=== PATIENT | female | born 1990 | race Caucasian/White ===

== ENCOUNTER 2016-10-06 17:01 | Observation (INO) | payer SELFPAY ==
[2016-10-06 18:36] VITALS: BP 132/67; PULSE 97
== END 2016-10-06 18:25 | disposition home or self-care (01) ==
LOC: OB 17:01
PROVIDERS: ADMIT Family Medicine; ATTEND Family Medicine
DX: Z34.83 Encounter for supervision of other normal pregnancy, third trimester (principal)
CPT/HCPCS: 59025; G0378

== ENCOUNTER 2016-10-26 09:11 | Inpatient (IN) | payer SELFPAY ==
[2016-10-26] MEDS ORDERED: OMNIPEN 2 GM / NACL 100ML 100 ML IV ONE (10:15)
[2016-10-26] MEDS ORDERED: XYLOCAINE 1% HCL 20 ML MDV IJ PRN (10:15)
[2016-10-26] MEDS ORDERED: Lactated Ringers 1,000 ML IV SCH (10:30)
[2016-10-26] MEDS ORDERED: PITOCIN 30 UNITS/ LR 500 ML 500 ML IV SCH ×2 (10:30→11:30)
[2016-10-26 11:09] LABS: BASOPHIL % 0.2 % (0.0-0.4); Granulocytes % 86.7 % (36.0-66.0); Mean Cell Volume 86.8 fl (78-100); Mean Platelet Volume 11.3 fl (6-9.5); Monocytes % 5.1 % (0.0-12.0); Platelet Count 165 K/mm3 (150-450); Red Blood Count 3.95 M/mm3 (4.1-5.4); White Blood Count 9.6 K/mm3 (4.0-10.5)
[2016-10-26] MEDS ORDERED: Phenergan 25 MG INJ IV PRN (11:13)
[2016-10-26] MEDS ORDERED: Zofran 4 MG/2 ML VIAL IV PRN (11:13)
[2016-10-26] MEDS ORDERED: STADOL 2 MG IV PRN (11:13)
[2016-10-26] MEDS ORDERED: TYLENOL EXTRA STRENGTH 500 MG PO PRN ×2 (11:13→13:05)
[2016-10-26] MEDS ORDERED: Nubain 10 MG/ML IV PRN (11:13)
[2016-10-26] MEDS ORDERED: Methergine IM ONE (12:10)
[2016-10-26] MEDS ORDERED: Hemabate IM ONE (12:10)
[2016-10-26] MEDS ORDERED: Tylenol #3 Tablet ONE (12:59)
[2016-10-26] MEDS ORDERED: CORTISONE 1% CREAM TP PRN (13:05)
[2016-10-26] MEDS ORDERED: Dermoplast Spray TP PRN (13:05)
[2016-10-26] MEDS ORDERED: Restoril 15 MG PO PRN (13:05)
[2016-10-26] MEDS ORDERED: Anucort-HC SUPPOSITORY PR PRN (13:05)
[2016-10-26] MEDS ORDERED: LANSINOH 40 GM TOP PRN (13:05)
[2016-10-26] MEDS ORDERED: TUCKS TP PRN (13:05)
[2016-10-26] MEDS ORDERED: Ambien 10 MG PO PRN (13:05)
[2016-10-26] MEDS ORDERED: Tylenol #3 Tablet PO PRN (13:05)
[2016-10-26] MEDS ORDERED: Rhogam Plus 300 MCG IM ONE (15:00)
[2016-10-26] MEDS: OMNIPEN 1GM / NaCl 100ML 100 ML IV SCH (18:24)
[2016-10-26] MEDS ORDERED: Lactated Ringers 1,000 ML IV ONE (18:53)
[2016-10-26] MEDS: Colace 100 MG PO SCH (21:43)
[2016-10-26] MEDS: MOTRIN 400 MG PO PRN (21:43)
[2016-10-27 05:44] LABS: Mean Cell Volume 88.5 fl (78-100); Mean Platelet Volume 11.4 fl (6-9.5); Platelet Count 150 K/mm3 (150-450); Red Blood Count 2.27 M/mm3 (4.1-5.4); Red Cell Distribution Width 17.6 % (11.5-14.0); White Blood Count 10.1 K/mm3 (4.0-10.5)
[2016-10-27 05:59] LABS: Mean Corpuscular Hemoglobin 27.7 pg (26-32)
[2016-10-27 07:06] LABS: BAND 2 % (0.0-2.0); Nucleated Red Blood Cell 1 %; Total Cells Counted 100
[2016-10-27 07:07] LABS: ANISOCYTOSIS 1+; Hypochromia 1+; Platelet Estimate NORMAL (NORMAL); Poikilocytosis 1+; Polychromasia 1+
[2016-10-27] MEDS ORDERED: FERREX 150 PO SCH (10:00)
[2016-10-27] MEDS: FEOSOL 325 MG PO SCH ×3 (10:17→21:29)
[2016-10-27] MEDS: Colace 100 MG PO SCH ×2 (10:17→21:29)
[2016-10-27] MEDS: MOTRIN 400 MG PO PRN ×2 (13:52→21:29)
[2016-10-28 05:48] LABS: Mean Platelet Volume 10.4 fl (6-9.5); Platelet Count 155 K/mm3 (150-450); Red Blood Count 2.11 M/mm3 (4.1-5.4); Red Cell Distribution Width 17.7 % (11.5-14.0); White Blood Count 6.4 K/mm3 (4.0-10.5)
[2016-10-28 06:02] LABS: Mean Corpuscular Hemoglobin 27.4 pg (26-32)
[2016-10-28] MEDS ORDERED: Sodium Chloride 0.9% 1000 ML 1,000 ML IV SCH (06:30)
--- NOTE | 2016-10-28 07:44 | PCM.DS ---
Discharge Summary Date of Admission: 10/26/16 09:11 Admitting Physician: NETTIE JAMES Primary Care Provider: NETTIE JAMES Allergies Allergies No Known Drug Allergies Allergy (Verified 10/26/16 09:56) Hospital Summary - Hospital Course Hospital Course: 26 yo s/p ; she came in at term in active labor. Had uneventful delivery followed by hemorrhage. Bleeding since then has been wnl. Her initial hgb 4 h post delivery was 8.8, the next morning was 6.8 and deferred transfusion at that tme. This morning hgb is < 6 so she is receiving 2 units PRBC. Plan is to check post- transfusion hgb then d/c home. - Vitals & Intake/Output Vital Signs: Vital Signs Temperature 98.3 F 10/28/16 02:00 Pulse Rate 100 H 10/28/16 02:00 Respiratory Rate 18 10/28/16 02:00 Blood Pressure 107/55 10/28/16 02:00 O2 Sat by Pulse Oximetry Intake & Output: Intake & Output 10/25/16 10/26/16 10/27/16 10/28/16 11:59 11:59 11:59 11:59 Intake Total 850 Balance 850 Weight 70.76 kg - Lab Result Diagrams: 10/28/16 05:05 Lab Results-Last 24 Hrs: Lab Results-Last 24 Hours 10/28/16 Range/Units 05:05 WBC 6.4 (4.0-10.5) K/mm3 RBC 2.11 L (4.1-5.4) M/mm3 Hgb 5.8 L* (12.0-16.0) gm/dl Hct 19.0 L (35-47) % MCV 90.0 (78-100) fl MCH 27.4 (26-32) pg MCHC 30.5 L (32-36) g/dl RDW 17.7 H (11.5-14.0) % Plt Count 155 (150-450) K/mm3 MPV 10.4 H (6-9.5) fl Discharge Exam General Appearance: no apparent distress Neurologic Exam: alert, oriented x 3, cooperative Skin Exam: warm, dry, pale Eye Exam: eyes nml inspection Respiratory Exam: normal breath sounds, lungs clear, No crackles/rales, No rhonchi, No wheezing Cardiovascular Exam: regular rate/rhythm (she is tachycardic with minimal exertion), No murmur Gastrointestinal/Abdomen Exam: soft, No tenderness, No distention, No guarding Extremity Exam: No pedal edema, No swelling Back Exam: normal inspection Final Diagnosis/Problem List - Final Discharge Diagnosis/Problem (1) Spontaneous vaginal delivery Current Visit: No Status: Acute Assessment & Plan: PP day #2, plan is to send her home today. (2) hemorrhage Current Visit: Yes Status: Acute Assessment & Plan: bleeding nl today, will transfuse then plan is to send her home. (3) Anemia Current Visit: No Status: Acute Assessment & Plan: 2 units PRBC today - Discharge Disposition: Home, Self-Care Condition: Stable Prescriptions: Continue Vits W-Ca,Fe,FA(<1Mg) [] 1 each PO DAILY Changed Ferrous Sulfate [Iron] 325 mg PO BID #60 tablet
[2016-10-28] MEDS: FEOSOL 325 MG PO SCH ×3 (10:26→21:07)
[2016-10-28] MEDS: MOTRIN 400 MG PO PRN (10:26)
[2016-10-28] MEDS: Colace 100 MG PO SCH ×2 (10:26→21:07)
[2016-10-28] MEDS ORDERED: XYLOCAINE 1% HCL 20 ML MDV IJ PRN (17:26)
[2016-10-28] MEDS ORDERED: Zofran 4 MG/2 ML VIAL IV PRN (17:26)
[2016-10-28] MEDS ORDERED: Phenergan 25 MG INJ IV PRN (17:26)
[2016-10-28] MEDS ORDERED: Lactated Ringers 1,000 ML IV SCH (17:30)
[2016-10-28] MEDS ORDERED: PITOCIN 30 UNITS/ LR 500 ML 500 ML IV SCH (17:30)
[2016-10-28 18:03] LABS: AB ID Interp Anti-D Passive
[2016-10-29 04:38] LABS: Mean Cell Volume 88.2 fl (78-100); Mean Platelet Volume 10.1 fl (6-9.5); Platelet Count 161 K/mm3 (150-450); Red Blood Count 2.79 M/mm3 (4.1-5.4); Red Cell Distribution Width 17.2 % (11.5-14.0); White Blood Count 6.8 K/mm3 (4.0-10.5)
[2016-10-29 04:46] LABS: Mean Corpuscular Hemoglobin 27.9 pg (26-32)
[2016-10-29 05:03] VITALS: PULSE 74
[2016-10-29 07:56] LABS: ANISOCYTOSIS 2+; Hypochromia 1+; Platelet Estimate NORMAL (NORMAL); Poikilocytosis 1+; Total Cells Counted 100
[2016-10-29 08:08] VITALS: BP 109/76
--- NOTE | 2016-10-29 08:13 | PCM.DS ---
Discharge Summary Date of Admission: 10/26/16 09:11 Admitting Physician: NETTIE JAMES Primary Care Provider: NETTIE JAMES Allergies Allergies No Known Drug Allergies Allergy (Verified 10/26/16 09:56) Hospital Summary - Hospital Course Hospital Course: Pt admitted in active labor, had baby via . Post hemorrhage required 250 mcg hemabate x 1. Her hgb 4h PP was 8.8; the next morning is was 6.8. We discussed transfusion but she was asymptomatic overnight and we opted to wait and recheck the next day. The next morning the hgb was < 6 so blood was ordered early in the day. Pt did not receive blood until about 8 pm last night; there were antibodies in her blood on type and cross (pt received Rhogam after delivery). She c/o one episode of tightness in the chest after receiving the blood but otherwise is feeling fine. Bleeding like menses. Hgb this morning 7.8. - Vitals & Intake/Output Vital Signs: Vital Signs Temperature 98.7 F 10/29/16 08:00 Pulse Rate 74 10/29/16 08:00 Respiratory Rate 18 10/29/16 08:00 Blood Pressure 109/76 10/29/16 08:00 O2 Sat by Pulse Oximetry Intake & Output: Intake & Output 10/26/16 10/27/16 10/28/16 10/29/16 11:59 11:59 11:59 11:59 Intake Total 850 2349 Balance 850 2349 Weight 70.76 kg - Lab Result Diagrams: 10/29/16 04:35 Lab Results-Last 24 Hrs: Lab Results-Last 24 Hours 10/28/16 10/28/16 10/28/16 Range/Units 05:10 05:10 05:10 WBC (4.0-10.5) K/mm3 RBC (4.1-5.4) M/mm3 Hgb (12.0-16.0) gm/dl Hct (35-47) % MCV (78-100) fl MCH (26-32) pg MCHC (32-36) g/dl RDW (11.5-14.0) % Plt Count (150-450) K/mm3 MPV (6-9.5) fl Segmented Neutrophils (36.0-66.0) % Lymphocytes (Manual) (24-44) % Monocytes (Manual) (0.0-12.0) % Differential Comment Platelet Estimate (NORMAL) Hypochromasia Poikilocytosis Anisocytosis ABO Group O Rh Factor NEGATIVE Antibody Screen POSITIVE (NEGATIVE) Crossmatch COMPATIBLE COMPATIBLE (COMPATIBLE) 10/29/16 Range/Units 04:35 WBC 6.8 (4.0-10.5) K/mm3 RBC 2.79 L (4.1-5.4) M/mm3 Hgb 7.8 L (12.0-16.0) gm/dl Hct 24.6 L (35-47) % MCV 88.2 (78-100) fl MCH 27.9 (26-32) pg MCHC 31.7 L (32-36) g/dl RDW 17.2 H (11.5-14.0) % Plt Count 161 (150-450) K/mm3 MPV 10.1 H (6-9.5) fl Segmented Neutrophils 65 (36.0-66.0) % Lymphocytes (Manual) 34 (24-44) % Monocytes (Manual) 1 (0.0-12.0) % Differential Comment ABNORMAL Platelet Estimate NORMAL (NORMAL) Hypochromasia 1+ Poikilocytosis 1+ Anisocytosis 2+ ABO Group Rh Factor Antibody Screen (NEGATIVE) Crossmatch (COMPATIBLE) Discharge Exam General Appearance: no apparent distress Neurologic Exam: alert, oriented x 3, cooperative Skin Exam: warm, dry, pale Eye Exam: eyes nml inspection Respiratory Exam: normal breath sounds, lungs clear, No crackles/rales, No rhonchi, No wheezing Cardiovascular Exam: regular rate/rhythm, normal heart sounds, No murmur Gastrointestinal/Abdomen Exam: soft, other (fundus firm under umbilicus), No tenderness Extremity Exam: normal inspection, No pedal edema, No swelling Back Exam: normal inspection Final Diagnosis/Problem List - Final Discharge Diagnosis/Problem (1) Spontaneous vaginal delivery Current Visit: No Status: Acute Assessment & Plan: PPD #3 - d/c home today. (2) hemorrhage Current Visit: Yes Status: Resolved (3) Anemia Current Visit: No Status: Acute Assessment & Plan: Hgb to 7.8 today. home on FeSO4 BID and recheck in1 mo. - Discharge Disposition: Home, Self-Care Condition: Stable Prescriptions: New Ferrous Sulfate 325 mg [Feosol 325 mg] 325 mg PO BID #60 tablet Continue Vits W-Ca,Fe,FA(<1Mg) [] 1 each PO DAILY Changed Ferrous Sulfate [Iron] 325 mg PO BID #60 tablet Follow up with: NETTIE JAMES [Primary Care Provider] - 1 Week
== END 2016-10-29 09:05 | disposition home or self-care (01) | DRG 774 ==
LOC: OB 09:11 → INTOOBSV 09:11 → OBSVTOIN 09:11 → UNDOADMOB 09:11
PROVIDERS: ADMIT Family Medicine; ATTEND Family Medicine
PROC: 10E0XZZ Delivery of Products of Conception, External Approach (ICD-10-PCS; principal; 2016-10-26)
PROC: 0HQ9XZZ Repair Perineum Skin, External Approach (ICD-10-PCS; 2016-10-26)
DX: O72.1 Other immediate postpartum hemorrhage (principal); O90.81 Anemia of the puerperium; O70.0 First degree perineal laceration during delivery; Z3A.38 38 weeks gestation of pregnancy; Z37.0 Single live birth
CPT/HCPCS: 36415; 36430; 80307; 85014; 85018; 85025; 86850; 86870; 86900; 86901; 86922; G0378; J0290; J1330; J2405; J2590; J2790; P9016; A9270-GY